=== PATIENT | male | born 1975 | race Caucasian/White ===

== ENCOUNTER 2025-02-16 12:56 | Outpatient (AMB) | payer MEDICARE, MEDICAID, SELFPAY ==
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
[2025-02-16 12:58] VITALS: BP 100/60; PULSE 106; RESP 16; TEMP 37.3; O2SAT 96; BMI 35.9
== END 2025-02-16 13:17 | disposition home or self-care (01) ==
LOC: HO.HMCWIC 12:56
PROVIDERS: Visit Provider Physician Assistant
DX: K04.7 Periapical abscess without sinus (principal)

== ENCOUNTER → 2025-02-16 12:56 | Outpatient (BNVA) | payer MEDICARE, MEDICAID, SELFPAY | PROVIDERS: Visit Provider Physician Assistant | DX: K04.7 Periapical abscess without sinus (principal) | CPT/HCPCS: 99202 ==